=== PATIENT | female | born 1930 | race Caucasian/White ===

== ENCOUNTER 2018-12-06 22:04 | Emergency (ER) | payer OTHER ==
[~2018-12-06] VITALS: Ht 157.5 cm; Wt 71.7 kg
[2018-12-06] MEDS ORDERED: IV NS 0.9% 500 ML BAG IV ONE (22:30)
--- NOTE | 2018-12-06 22:30 | NUR ---
BIBRA. C/O "HAVING GENERALIZED WEAKNESS. UNABLE TO GET UP BY SELF"-SOB AOX.4. VSS. WEAKNESS NOTED.
[2018-12-06 22:50] LABS: BASOPHILS % (AUTO) 0.4 % (0.0-2.0); EOSINOPHILS % (AUTO) 0.5 % (0.0-6.0); HEMATOCRIT 36 % (33-45); HEMOGLOBIN 12.3 g/dL (11.5-14.8); LYMPHOCYTES # (AUTO) 0.7 /CMM (0.8-4.8); MEAN CORPUSCULAR HGB CONC 34 g/dl (31.0-36.0); MEAN CORPUSCULAR VOLUME 92 fL (82-100); MONOCYTES # (AUTO) 0.7 /CMM (0.1-1.30); MONOCYTES % (AUTO) 9.1 % (2.0-12.0); NEUTROPHILS # (AUTO) 6.6 /CMM (1.8-8.9); PLATELET COUNT (AUTO) 230 /CMM (150-450); RED BLOOD CELL COUNT(AUTO) 3.97 MIL/uL (4.0-5.2); WHITE BLOOD COUNT (AUTO) 8.1 K/uL (4.3-11.0)
[2018-12-06 22:59] LABS: CALCIUM, SERUM 9.5 mg/dL (8.5-10.1); CARBON DIOXIDE 28 mmol/L (21-32); CHLORIDE 106 mmol/L (98-107); CREATININE 0.8 mg/dL (0.6-1.3); GLUCOSE 128 mg/dL (74-106); POTASSIUM 3.5 mmol/L (3.5-5.1); SODIUM SERUM 142 mmol/L (136-145); UREA NITROGEN, BLOOD 19 mg/dL (7-18)
[2018-12-06 23:04] LABS: ALANINE AMINOTRANSFERASE 15 U/L (12-78); ALBUMIN 3.5 g/dL (3.4-5.0); ALKALINE PHOSPHATASE 73 U/L (46-116); ASPARTATE AMINOTRANSFERASE 15 U/L (15-37); BILIRUBIN,DIRECT 0.1 mg/dL (0.0-0.2); BILIRUBIN,TOTAL 0.4 mg/dL (0.2-1.0); TOTAL PROTEIN, SERUM 7.5 g/dL (6.4-8.2)
[2018-12-06 23:27] LABS: APPEARANCE,URINE Cloudy (CLEAR); BILIRUBIN,URINE SMALL (NEGATIVE); BLOOD, URINE Large Ery/uL (NEGATIVE); COLOR,URINE Yellow (YELLOW); KETONES,URINE Negative (NEGATIVE); LEUKOCYTE ESTERASE ,URINE Large (NEGATIVE); NITRITE, URINE Negative (NEGATIVE); PH,URINE 7.5 (5.0-8.0); PROTEIN,URINE >=300 mg/dl (NEGATIVE); UGLUCOSE Negative (NEGATIVE)
--- NOTE | 2018-12-06 23:38 | NUR ---
CALLED [facility] FOR THIS PATIENT
[2018-12-06 23:48] LABS: BACTERIA,URINE Many /HPF (None Seen); SQUAMOUS EPITHELIAL CELL,UR Few /HPF (None Seen)
--- NOTE | 2018-12-07 00:55 | NUR ---
CODIE FROM [facility]; NO AVAILABLE ETA FOR NOW, WILL CALL AROUND [phone] READING ER IS FULL CAPACITY
[2018-12-07 01:37] VITALS: BP 102/47
[2018-12-07] MEDS ORDERED: CEFTRIAXONE 1GM BAG (ER ONLY) 50 ML IV ONE (01:55)
--- NOTE | 2018-12-07 02:17 | NUR ---
DR FRANCIS MAGAÑA [facility] [phone] ETA [phone]
== END 2018-12-07 03:34 | disposition short-term general hospital (02) ==
LOC: ER 22:09
DX: R53.1 Weakness (principal); Z85.828 Personal history of other malignant neoplasm of skin; Z88.2 Allergy status to sulfonamides
CPT/HCPCS: 36415; 71045; 80048; 80076; 81001; 83605; 84145; 84484; 85025; 85730; 87040 ×2; 93005; 99285; J0696; J7040; 81000-TC; 87086-TC